=== PATIENT | female | born 1980 | race Caucasian/White ===

== ENCOUNTER 2024-08-27 13:53 | Outpatient (CLI) | payer OTHER | END 2024-08-27 23:59 | disposition home or self-care (01) | LOC: RAD 13:53 | PROVIDERS: ATTEND Nurse Practitioner Family | DX: R13.10 Dysphagia, unspecified (principal); R09.89 Other specified symptoms and signs involving the circulatory and respiratory systems | CPT/HCPCS: 74230 ==